=== PATIENT | male | born 1970 | race Caucasian/White ===

== ENCOUNTER 2021-02-21 11:01 | Emergency (ER) | payer BC ==
[2021-02-21 12:13] LABS: Bilirubin Direct 0.1 mg/dL (0-0.2); Bilirubin Total 0.5 mg/dL (0.2-1.0); Potassium 4.4 mmol/L (3.5-5.1); Protein, Total 7.9 g/dL (6.4-8.2)
--- NOTE | 2021-02-21 12:13 | RAD REPORT ---
EXAM DESCRIPTION: CTAbdomen Pelvis W Contrast - 02/21/2021 11:58 am CLINICAL HISTORY: . ABD PAIN COMPARISON: No comparisons TECHNIQUE: Biphasic CT imaging of the abdomen and pelvis was performed with 100 ml non-ionic IV cont rast. All CT scans are performed using dose optimization technique as appropriate and may include automated exposure control or mA/KV adjustment according to patient size. FINDINGS: Lower chest: No acute abnormality. Moderate sliding-type hiatal hernia. Thickened distal e sophagus which likely reflects esophagitis. Liver: Too small to characterize and/or benign appearing liver lesions are noted. Biliary: No biliary ductal dilatation. Stomach: No significant focal abnormality. Duodenum: No significant focal abnormality. Pancreas: No significant abnormality. Spleen: No significant abnormality. Adrenal: No suspicious lesions. Kidney/ureter: No hydronephrosis. 4 mm stones in the right kidney. Punctate left renal calculus. Too small to characterize and/or benign appearing renal lesions are noted. Retroperitoneum: No retroperitoneal adenopathy. Vascular: No aneurysm. Bowel: No significant focal abnormality. Normal appendix. Peritoneum: Small fat containing umbilical hernia with mild associated stranding. Bladder: Grossly unremarkable. Reproductive: No adnexal masses. Bones: No acute fracture. Other: n/a IMPRESSION: Mild stranding associated with a fat containing umbilical hernia which could be secondar y to incarceration/strangulation. Correlate with site of pain. Moderate hiatal hernia also noted.
[2021-02-21 12:19] LABS: Absolute Lymphocytes (CBC) 1.4 K/uL (0.7-4.9); Basophils % 0.3 % (0-1.3); Hematocrit 42.9 % (39.6-49.0); Lymphocytes % 14.5 % (15.3-44.8); MPV 7.7 fL (7.6-11.3); RBC Red Blood Cell Count 4.93 M/uL (4.33-5.43)
--- NOTE | 2021-02-21 12:44 | EDPHYS ---
Physician Documentation [facility] Name: Cristian Yañez Age: 51 yrs Sex: Male : 1970 Arrival Date: 02/21/2021 Time: 11:03 Bed 17 Private MD: ED Physician Rosales Young HPI: 02/21 12:39 This 51 yrs old Male presents to ER via Ambulatory with complaints of jr8 Abdominal Pain. 12:39 Onset: The symptoms/episode began/occurred acutely, today. The symptoms do not radiate. jr8 Associated signs and symptoms: none. The symptoms are described as sharp. Severity of pain: At its worst the pain was moderate in the emergency department the pain has resolved and did so just prior to arrival. The patient has not experienced similar symptoms in the past. The patient has not recently seen a physician. 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 Stated that he was able to lay down and it receded. Feeling much better at this point but was unsure where the problem was.. Historical: - Allergies: 11:19 No Known Allergies; tw2 - Home Meds: 11:19 None [Active]; tw2 - PMHx: 11:19 Kidney stone; tw2 - PSHx: 11:19 right knee; Tonsillectomy; Adenoid excision; tw2 - Immunization history:: Client reports receiving the 2nd dose of the Covid vaccine. - Social history:: Smoking status: Patient denies any tobacco usage or history of. ROS: 12:39 Eyes: Negative for injury, pain, redness, and discharge, ENT: Negative for injury, jr8 pain, and discharge, Neck: Negative for injury, pain, and swelling, Cardiovascular: Negative for chest pain, palpitations, and edema, Respiratory: Negative for shortness of breath, cough, wheezing, and pleuritic chest pain, Back: Negative for injury and pain, MS/Extremity: Negative for injury and deformity, Skin: Negative for injury, rash, and discoloration, Neuro: Negative for headache, weakness, numbness, tingling, and seizure. 12:39 Abdomen/GI: Positive for abdominal pain, Negative for nausea, vomiting, and diarrhea. Exam: 12:39 Constitutional: This is a well developed, well nourished patient who is awake, alert, jr8 and in no acute distress. Cardiovascular: Regular rate and rhythm with a normal S1 and S2. No gallops, murmurs, or rubs. Normal PMI, no JVD. No pulse deficits. Respiratory: Lungs have equal breath sounds bilaterally, clear to auscultation and percussion. No rales, rhonchi or wheezes noted. No increased work of breathing, no retractions or nasal flaring. Skin: Warm, dry with normal turgor. Normal color with no rashes, no lesions, and no evidence of cellulitis. MS/ Extremity: Pulses equal, no cyanosis. Neurovascular intact. Full, normal range of motion. Neuro: Awake and alert, GCS 15, oriented to person, place, time, and situation. Cranial nerves II-XII grossly intact. Motor strength 5/5 in all extremities. Sensory grossly intact. 12:39 Abdomen/GI: Inspection: abdomen appears normal, Bowel sounds: active, all quadrants, Palpation: soft, in all quadrants, mild abdominal tenderness, in the umbilical area, mass, is not appreciated, rebound tenderness, is not appreciated, voluntary guarding, is not appreciated, involuntary guarding, is not appreciated, no appreciated organomegaly, Hernia: noted in the umbilical area, incarceration, is not appreciated, tenderness, that is mild. Vital Signs: 11:17 BP 135 / 99; Pulse 66; Resp 17; Temp 97.6(TE); Pulse Ox 100% on R/A; Weight 102.06 kg tw2 (R); Height 6 ft. 3 in. (190.50 cm); Pain 8/10; 13:30 BP 135 / 105; Pulse 78; Resp 18; Pulse Ox 99% on R/A; kg 11:17 Body Mass Index 28.12 (102.06 kg, 190.50 cm) tw2 MDM: 11:20 Patient medically screened. jr8 12:39 Data reviewed: vital signs, nurses notes, lab test result(s), radiologic studies, CT jr8 scan, and as a result, I will discharge patient. Data interpreted: Pulse oximetry: on room air. Counseling: I had a detailed discussion with the patient and/or guardian regarding: the historical points, exam findings, and any diagnostic results supporting the discharge/admit diagnosis, lab results, radiology results, the need for outpatient follow up, a general surgeon, to return to the emergency department if symptoms worsen or persist or if there are any questions or concerns that arise at home. ED course: After patient was able to self reduce his hernia he is feeling much better. Discussed with patient that he did have some mild stranding on the CT but otherwise unremarkable. Most definitely is a umbilical hernia. That we do not have to take him to surgery emergently as it has reduced. That the fat stranding is residual inflammation. We have consulted general surgery and will see patient in the next 24 to 48 hours. In the meantime we will put on antibiotics. Patient knows to come back if it were to come out again and he could not self reduce.. 02/21 11:31 Order name: Basic Metabolic Panel; Complete Time: 12:19 8 02/21 11:31 Order name: CBC with Diff; Complete Time: 12:33 8 02/21 11:31 Order name: Hepatic Function; Complete Time: 12:19 8 02/21 11:31 Order name: Lipase; Complete Time: 12:19 jr8 02/21 11:31 Order name: IV Saline Lock; Complete Time: 11:42 jr8 02/21 11:39 Order name: CT Abd/Pelvis - IV Contrast Only; Complete Time: 12:19 jr8 02/21 11:31 Order name: Labs collected and sent; Complete Time: 11:42 jr8 Administered Medications: No medications were administered Disposition Summary: 02/21/21 12:43 Discharge Ordered Location: Home jr Problem: new jr8 Symptoms: have improved jr8 Condition: Stable jr8 Diagnosis - Periumbilical pain jr8 - Umbilical hernia without obstruction or gangrene jr8 Followup: jr8 - With: Omar Carter MD - When: 1 - 2 days - Reason: Recheck today's complaints, Continuance of care, Re-evaluation by your physician Discharge Instructions: - Discharge Summary Sheet jr8 - Hernia, Adult jr8 Forms: - Medication Reconciliation Form jr8 - Thank You Letter jr8 - Antibiotic Education jr8 - Prescription Opioid Use jr8 Prescriptions: - Amoxicillin 875 mg Oral Tablet - take 1 tablet by ORAL route every 12 hours for 7 days; 14 tablet; Refills: 0, jr8 Product Selection Permitted Addendum: 02/24/2021 17:39 Co-signature as Attending Physician, Rosales kraft a2 Signatures: Dispatcher [employer] Elliot Andrea PA PA jr8 Charlene Tello RN RN tw2 Rosales Young MD MD ma2 Corrections: (The following items were deleted from the chart) 02/21 11:19 11:19 PMHx: None; tw2 2
--- NOTE | 2021-02-21 12:44 | ER ---
Nurse's Notes [facility] Name: Cristian Yañez Age: 51 yrs Sex: Male : 1970 Arrival Date: 02/21/2021 Time: 11:03 Bed 17 Private MD: Diagnosis: Periumbilical pain;Umbilical hernia without obstruction or gangrene Presentation: 02/21 11:17 Chief complaint: Patient states: my stomach started hurting about 915. yesterday tw2 started right at my belly button. today it got worse and i started feeling nauseous. Chief complaint: Patient states: also noted a mass right near my belly button about the same time the pain started. Coronavirus screen: At this time, the client does not indicate any symptoms associated with coronavirus-19. Ebola Screen: Patient denies travel to an Ebola-affected area in the 21 days before illness onset. Initial Sepsis Screen: Does the patient meet any 2 criteria? No. Patient's initial sepsis screen is negative. Does the patient have a suspected source of infection? No. Patient's initial sepsis screen is negative. Risk Assessment: Do you want to hurt yourself or someone else? Patient reports no desire to harm self or others. Onset of symptoms was February 21, 2021. 11:17 Method Of Arrival: Ambulatory tw2 11:17 Acuity: [place] 2 tw2 Triage Assessment: 11:19 General: Appears uncomfortable, well groomed, Behavior is calm, cooperative, tw2 appropriate for age. Pain: Complains of pain in umbilical area. GI: Reports lower abdominal pain, upper abdominal pain, nausea. Historical: - Allergies: 11:19 No Known Allergies; tw2 - Home Meds: 11:19 None [Active]; tw2 - PMHx: 11:19 Kidney stone; tw2 - PSHx: 11:19 right knee; Tonsillectomy; Adenoid excision; tw2 - Immunization history:: Client reports receiving the 2nd dose of the Covid vaccine. - Social history:: Smoking status: Patient denies any tobacco usage or history of. Screenin:24 Abuse screen: Denies threats or abuse. Nutritional screening: No deficits noted. tw2 Tuberculosis screening: No symptoms or risk factors identified. Fall Risk None identified. Assessment: 11:51 General: Appears in no apparent distress. Behavior is calm, cooperative, appropriate ll1 for age. Pain: Complains of pain in umbilical area Quality of pain is described as aching. Neuro: No deficits noted. Cardiovascular: No deficits noted. Respiratory: No deficits noted. GI: Abdomen is flat, Bowel sounds present X 4 quads. Abd is soft and non tender X 4 quads. Reports lower abdominal pain, upper abdominal pain, nausea. Vital Signs: 11:17 BP 135 / 99; Pulse 66; Resp 17; Temp 97.6(TE); Pulse Ox 100% on R/A; Weight 102.06 kg tw2 (R); Height 6 ft. 3 in. (190.50 cm); Pain 8/10; 13:30 BP 135 / 105; Pulse 78; Resp 18; Pulse Ox 99% on R/A; kg 11:17 Body Mass Index 28.12 (102.06 kg, 190.50 cm) tw2 ED Course: 11:03 Patient arrived in ED. as 11:18 Triage completed. tw2 11:20 Elliot Noyola PA is PHCP. jr8 11:20 Rosales Young MD is Attending Physician. jr8 11:20 Arm band placed on. tw2 11:24 Bed in low position. Call light in reach. Adult w/ patient. tw2 11:42 Asher Camejo, ANA is Primary Nurse. ll1 11:50 Inserted saline lock: 22 gauge in right antecubital area, using aseptic technique. ll1 Blood collected. 11:58 CT Abd/Pelvis - IV Contrast Only In Process Unspecified. EDMS 12:28 Report given to Romi Dunham RN. ll1 12:43 Omar Carter MD is Referral Physician. jr8 13:46 No provider procedures requiring assistance completed. IV discontinued, intact, kg bleeding controlled, No redness/swelling at site. Pressure dressing applied. Administered Medications: No medications were administered Outcome: 12:43 Discharge ordered by . jr8 13:46 Discharged to home ambulatory. kg 13:46 Condition: good 13:46 Condition: improved 13:46 Discharge instructions given to 13:46 Discharge instructions given to patient, family, significant other, Instructed on discharge instructions, follow up and referral plans. Demonstrated understanding of instructions, follow-up care. 13:50 Patient left the ED. kg Signatures: Dispatcher [employer] EDMS Lupe Larson Roszak, Elliot, PA PA jr8 Charlene Tello RN RN tw2 Asher Camejo RN RN ll1 Meredith Dunham RN RN kg Corrections: (The following items were deleted from the chart) 11:19 PMHx: None; tw2 tw
[2021-02-21 13:56] VITALS: TEMP 97.6
[2021-02-21 13:57] VITALS: BP 135/105; O2SAT 99
== END 2021-02-21 13:50 | disposition home or self-care (01) ==
LOC: ER 11:01
DX: K42.9 Umbilical hernia without obstruction or gangrene (principal)
CPT/HCPCS: 85025; 80048; 36415; 82565; 80076; 83690; 74177; 99283; Q9967

== ENCOUNTER 2021-03-09 08:28 | Day surgery (SDC) | payer BC ==
[2021-03-09] MEDS ORDERED: NS ONE (08:59)
[2021-03-09] MEDS ORDERED: CEFAZOLIN ONE (08:59)
[2021-03-09] MEDS ORDERED: Ringers Lactate 1,000 ML IV ONE ×2 (08:59→13:38)
[2021-03-09] MEDS: CELECOXIB 100 MG CAPSULE ONE ×2 (10:06→10:07)
[2021-03-09] MEDS: ACETAMINOPHEN 500 MG TAB ONE ×2 (10:06→10:07)
[2021-03-09] MEDS ORDERED: MIDAZOLAM HCL 2 MG/2 ML INJ ONE (12:00)
[2021-03-09] MEDS ORDERED: BUPIVACAINE 0.25% PF 30 ML VIAL ONE (12:11)
[2021-03-09] MEDS ORDERED: FENTANYL CITR 100 MCG/2 ML ONE (12:12)
[2021-03-09] MEDS ORDERED: propofoL 200 MG/20 ML VIAL IV ONE (12:12)
[2021-03-09] MEDS ORDERED: LIDOCAINE 2% MPF 5 ML VIAL ONE (12:12)
[2021-03-09] MEDS ORDERED: ROCURONIUM 50 MG/5 ML VIAL IV ONE ×2 (12:12→12:52)
[2021-03-09] MEDS ORDERED: dexAMETHasone 10 MG/ML VIAL ONE (12:48)
[2021-03-09] MEDS ORDERED: GLYCOPYRROLATE 0.2 MG/ML SYR ONE ×2 (12:48→13:52)
[2021-03-09] MEDS ORDERED: ONDANSETRON 4 MG/2 ML VIAL ONE (13:11)
--- NOTE | 2021-03-09 13:11 | P.OP ---
Preoperative diagnosis: Umbilical Hernia Postoperative diagnosis: Umbilical Hernia Primary procedure: Laparoscopic Umbilical Hernia Repair with mesh Anesthesia: GETA Local Estimated blood loss: < 10cc Specimen: Hernia Contents Findings: ~3cm umbilical hernia Complications: None Implants: Bard Ventralite ST with echo position - Round 11.4cm Transferred to: Recovery Room Condition: Good
[2021-03-09] MEDS ORDERED: KETOROLAC 30 MG/ML INJ ONE (13:12)
[2021-03-09] MEDS: HYDROMORPHONE HCL 1 MG/ML INJ ONE ×2 (13:42→13:50)
[2021-03-09] MEDS ORDERED: NEOSTIGMINE 1 MG/ML -5 ML ONE (13:47)
--- NOTE | 2021-03-09 13:50 | OP ---
Date of Procedure: 03/09/2021 Surgeon: Omar Carter MD, Preoperative Diagnosis: Ventral umbilical hernia. Postoperative Diagnosis: Ventral umbilical hernia. Procedure Performed: Laparoscopic ventral umbilical hernia repair with mesh. Anesthesia: General endotracheal plus local with 0.25% Marcaine. Estimated Blood Loss: Less than 10 cc. Specimens: Hernia contents. Findings: Approximately 3 cm umbilical hernia defect. Complications: None. Implants: Bard Ventralight ST mesh with Echo positioning System, round, approximately 11.4 cm. Disposition: The patient was transferred to recovery room in good condition. Additional Finding: Preperitoneal fat was incarcerated into the umbilical defect. Procedure In Detail: After informed consent was obtained, the patient was brought to the operating r oom, prepped and draped in usual fashion. After adequate anesthesia, the left upper quadrant incisio n was made down to the subcutaneous tissues. A 5 mm 0-degree optical trocar was introduced in the ab domen without complication. Insufflation was obtained to 15 mmHg at this time. No injury to vital st ructures was appreciated upon entry into the abdomen. Additional trocar was placed in the left lower quadrant. This was similarly anesthetized, sharply incised and a 12 mm trocar was placed under dire ct visualization without evidence of complication. At this point, I removed entrapped preperitoneal fat from the umbilical defect using the LigaSure device. This was ultimately ligated and removed, br ought out through the trocar as specimen as abdominal fat contents incarcerated into the umbilical he rnia. At this point, I brought the Endo stitch with the V-Loc and secured and closed the ventral abd ominal hernia in a running fashion with the V-Loc with good apposition of tissues. At this point, I then brought an 11.[address] mesh with Echo positioning System, 11.4 cm as the defect was approximately 3 cm in size. I brought it in, deployed it appropriately in the center position an d secured the mesh using a double crown method and removed the balloon deployment system at this poin t, and used remaining tacks to secure the mesh to the anterior abdominal wall with good apposition of tissues. No hemostatic measures required. I then removed the left lower quadrant trocar and closed the trocar site using a Manish-Jonathan suture passer with a 0 Vicryl in interrupted fashion with go od approximation of tissues. The abdomen was completely desufflated under direct visualization witho ut evidence of complication. The remaining trocars were removed. All skin incisions were copiously irrigated and closed with 4-0 Monocryl in a running fashion. Dermabond was placed over the top. The patient tolerated the procedure well without evidence of complications and transferred to PACU in go od condition. All counts were correct at the end of the case. EMILIA/DESIREE Voice ID: [id number] Report ID: [id number]
[2021-03-09] MEDS ORDERED: ATROPINE SULF 1 MG/10 ML SYR IV ONE (13:55)
[2021-03-09] MEDS: HYDROMORPHONE HCL 2 MG/ML inj ONE ×2 (14:04→14:09)
[2021-03-09 14:44] VITALS: TEMP 97.3
[2021-03-09] MEDS ORDERED: HYDROCODONE/APAP 10/325 TAB ONE (15:16)
[2021-03-09 15:43] VITALS: BP 120/89; O2SAT 96
== END 2021-03-09 15:49 | disposition home or self-care (01) ==
LOC: OR 08:28
PROVIDERS: ATTEND Surgery
PROC: 0WUF4JZ Supplement Abdominal Wall with Synthetic Substitute, Percutaneous Endoscopic Approach (ICD-10-PCS; principal; 2021-03-09 10:15)
DX: K42.0 Umbilical hernia with obstruction, without gangrene (principal); Z20.822 Contact with and (suspected) exposure to COVID-19
CPT/HCPCS: 88302; 49652; U0003; J2704; J2250; J1170 ×2; J3010; J1100; J2710; J0690; J7120 ×2; J2405; C1781